=== PATIENT | female | born 1990 | race Caucasian/White ===

== ENCOUNTER 2017-06-26 11:29 | Emergency (ER) | payer OTHER ==
[~2017-06-26] VITALS: Ht 172.7 cm; Wt 85.0 kg
[2017-06-26 11:33] VITALS: BP 146/85; PULSE 109; RESP 16; TEMP 98.7; O2SAT 100
--- NOTE | 2017-06-26 11:50 | PD ---
HPI Chief Complaint: Complaint Time Seen by Provider: 11:39 Travel History International Travel<30 days: No Contact w/Intl Traveler<30days: No Traveled to known affect area: No History of Present Illness HPI 76-year-old female presents to emergency department, approximately 15 weeks , with complaint of burning on urination since Thursday. She was seen in [place] and was given amoxicillin which she has also been taking since Thursday with no relief of symptoms. Reports a dull lower backache, worse on the right. His vaginal bleeding, discharge, leakage. Denies abdominal pain or cramping. Reports urinary frequency and hesitancy. Denies fever, vomiting. Has been taking Azo axel-calm for symptom management. Symptoms are mild in severity. [facility] is in [facility]. No known allergies. Has no other medical complaints. No significant past medical history. No other modifying factors or associated signs and symptoms. PFSH Past Medical History ?: LMP: 03/13/17 Social History Tobacco Use: No Allergies-Medications (Allergen,Severity, Reaction): Coded Allergies: No Known Allergies (Unverified , 06/26/17) Reported Meds & Prescriptions Reported Meds & Active Scripts Active Keflex (Cephalexin) 500 Mg Cap 500 Mg PO Q12H 7 Days Reported Amoxicillin 875 Mg Tab 875 Mg PO BID Review of Systems Except as stated in HPI: all other systems reviewed are Neg Physical Exam Narrative GENERAL: Well-nourished, well-developed female patient, in no acute distress; febrile, nontoxic-appearing SKIN: Warm and dry. No rash. HEAD: Atraumatic. Normocephalic. EYES: Pupils equal and round. No scleral icterus. No injection or drainage. ENT: Mucosa pink and moist. NECK: Trachea midline. CARDIOVASCULAR: Regular rate and rhythm. No murmur appreciated. RESPIRATORY: No accessory muscle use. Clear to auscultation. Breath sounds equal bilaterally. GASTROINTESTINAL: Abdomen soft, non-tender, nondistended. Hepatic and splenic margins not palpable. Bowel sounds are active 4 quadrants. Bladder nontender and nondistended. MUSCULOSKELETAL: No obvious deformities. No clubbing. No cyanosis. No edema. BACK: Right CVA tenderness. NEUROLOGICAL: Awake and alert. Oriented 3. No obvious cranial nerve deficits. Motor grossly within normal limits. Normal speech. Moves all extremities. 5/5 strength to all extremities. PSYCHIATRIC: Appropriate mood and affect; insight and judgment normal. Data Data Last Documented VS Vital Signs Date Time Temp Pulse Resp B/P (MAP) Pulse Ox O2 Delivery O2 Flow Rate FiO2 06/26/17 11:33 98.7 109 16 146/85 (105) 100 Room Air Orders Orders Urinalysis - C+S If Indicated (06/26/17 11:42) Ed Urine Pregnancytest Poc (06/26/17 11:42) Heart Tones (06/26/17 11:42) Acetaminophen (Tylenol) (06/26/17 12:00) Lidocaine 1% Inj (50 Ml) (Xylocaine 1% I (06/26/17 12:00) Ceftriaxone Inj (Rocephin Inj) (06/26/17 12:00) Urine Culture (06/26/17 11:55) Labs Laboratory Tests Test 06/26/17 11:55 Urine Color DARK-ORANGE Urine Turbidity CLOUDY Urine pH 7.0 Urine Specific [place] 1.015 Urine Protein 300 mg/dL Urine Glucose (UA) NEG mg/dL Urine Ketones NEG mg/dL Urine Occult Blood LARGE Urine Nitrite POS Urine Bilirubin NEG Urine Urobilinogen 2.0 MG/DL Urine Leukocyte Esterase LARGE Urine RBC /hpf Urine WBC /hpf Urine WBC Clumps MANY Urine Squamous Epithelial Cells 1 /hpf Urine Bacteria OCC /hpf Microscopic Urinalysis Comment CULTURE INDICATED MDM Medical Decision Making Medical Screen Exam Complete: Yes Emergency Medical Condition: Yes Medical Record Reviewed: Yes Differential Diagnosis UTI, cystitis, pyelonephritis Narrative Course 26-year-old female with symptoms of UTI. Is being treated with amoxicillin after being diagnosed with urinary tract infection on Thursday in [place]. Approximately 15 weeks . No related complications. heart tones approximately 176 bpm. Rocephin 1 g IM administered in the ER. Urinalysis ordered. 1250: Urinalysis with signs of infection. Urine reflex culture. Instructed patient to stop amoxicillin. Keflex prescribed for home. Instructed patient to follow up with regional safety manager. Instructed patient to follow up with primary care provider. Patient verbalizes understanding and agreement with treatment plan. Patient is medically cleared and stable for discharge. Discussed reasons to return to the emergency department. Patient agrees with treatment plan. The patients vital signs are stable and the patient is stable for outpatient follow-up and treatment. Patient discharged home, stable and in no acute distress. Diagnosis Primary Impression: UTI (urinary tract infection) during Qualified Codes: O23.42 - Unspecified infection of urinary tract in , second trimester Referrals: [facility] Primary Care Physician Patient Instructions: General Instructions, Urinary Tract Infection in (ED) Additional Instructions: Take antibiotics as prescribed and complete full course Drink plenty of fluids Maintain good personal hygiene Follow-up with primary care provider Follow-up with regional safety manager Return to the emergency department immediately with worsening of symptoms Med/Other Pt SpecificInfo: Prescription(s) given, Med Stopped Scripts Cephalexin (Keflex) 500 Mg Cap 500 MG PO Q12H for Infection for 7 Days, #14 CAP 0 Refills Prov: Kortney Richardson 06/26/17 Disposition: 01 DISCHARGE HOME Condition: Stable Kortney Richardson Jun 26, 2017 11:50
[2017-06-26] MEDS ORDERED: LIDOCAINE HCL 1% 50 ML VIAL IM ONE (12:00)
[2017-06-26] MEDS ORDERED: ACETAMINOPHEN 325 MG TAB PO ONE (12:00)
[2017-06-26] MEDS ORDERED: AMOX875T PO (12:02)
[2017-06-26 12:44] LABS: BACTERIA, URINE OCC /hpf; BLOOD, URINE LARGE (NEG); COMMENT (UR) CULTURE INDICATED; CULTURE IF INDICATED CULTURE INDICATED; GLUCOSE,URINE NEG (NEG); KETONE, URINE NEG (NEG); NITRITE,URINE POS (NEG); SQUAMOUS EPITHELIAL CELL URINE 1 /hpf (0-5)
[2017-06-26 12:46] LABS: URINE COLOR DARK-ORANGE (YELLW/STRAW)
[2017-06-26] MEDS ORDERED: CEPH-460 PO (12:48)
== END 2017-06-26 13:03 | disposition home or self-care (01) ==
LOC: NEPD 11:29
DX: O23.42 Unspecified infection of urinary tract in pregnancy, second trimester (principal); M54.5 Low back pain; Z3A.15 15 weeks gestation of pregnancy
CPT/HCPCS: 81001; 84703; 87077; 87086; 87186; 96372; 99285; J0696